=== PATIENT | female | born 1990 | race Caucasian/White ===

== ENCOUNTER 2017-01-31 03:44 | Inpatient (IN) | payer MEDICAID ==
[2017-01-31 04:05] VITALS: BMI 30.9
[2017-01-31] MEDS ORDERED: OXYTOCIN IN NS 167 ML IV PRN ×2 (06:42→15:45)
[2017-01-31] MEDS ORDERED: OXYTOCIN 10 UNITS/ML VIAL ONE (06:51)
[2017-01-31] MEDS ORDERED: LIDOCAINE Viscous 2% 15 ML UDCUP ONE (06:52)
[2017-01-31] MEDS ORDERED: LIDOCAINE 1% (PRES FREE) 30 ML VIAL ONE (06:52)
[2017-01-31] MEDS ORDERED: PUMP TUBING ONE (06:52)
[2017-01-31] MEDS ORDERED: MINERAL OIL 25 ML BOT ONE (06:52)
[2017-01-31] MEDS ORDERED: IV START KIT ONE (06:52)
[2017-01-31] MEDS ORDERED: FENTANYL/ROPIVACAINE EPIDURAL 250 ML EP ONE (06:53)
[2017-01-31] MEDS ORDERED: EPIDURAL PUMP SET ONE (06:53)
[2017-01-31] MEDS: LACTATED RINGERS 1,000 ML IV PRN ×3 (07:00→10:22)
[2017-01-31 07:13] LABS: HEMATOCRIT 36.4 % (37.0-47.0); HEMOGLOBIN 12.3 gm/l (12.0-16.0); MEAN CELL VOLUME 90.8 fl (81.0-99.0); MEAN CORPUSCULAR HEMOGLOBIN 30.7 pg (27.0-31.0); MEAN CORPUSCULAR HGB CONC 33.8 g/dl (33.0-37.0); RED CELL DISTRIBUTION WIDTH 12.8 % (11.5-14.5)
[2017-01-31] MEDS ORDERED: EPIDURAL PROCEDURE TRAY ONE (07:55)
[2017-01-31] MEDS ORDERED: ROPIVACAINE 0.5% 30 ML VIAL ONE (07:55)
--- NOTE | 2017-01-31 08:04 | PCMAN ---
OB Admission Note - History : 2 Term: 1 : 0 Abortions (S&E): 0 Livin EDC:: 02/13/17 Gestational Age (weeks): 38 Days (#/7): 1 Admit Cervical Dilation:: 7 Admit Cervical Effacement (%):: 80 Admit Station:: -2 Admit Presentaton:: vertex Membrane Status: Intact Labor Onset (Date): 01/31/17 Labor Onset (Time): 03:00 Contractions: Yes Contraction Frequency:: 2.5-4 Heart Rate:: 120 Status:: Cat I Summary of Course:: 26 yo here w UCs and labor PNC: started early PNC. Dated by 14 wk u/s c/w 25 wk u/s. Uncomplicated PNC. OBHx: at term PMH: noncontrib PSH: none SocHx: no tob/etoh/drug use IZ: TdaP 11/20/16 Flu 08/07/16 - Labs Blood Type: A (+) positive (ab neg) Rubella Status: Immune GBS Status: Negative Abnormal Labs: None Other Labs:: HIV NR HBsAg NR TPall neg GC neg Chlam neg - Review of Systems No MEDINA, change in vision, RUQ pain - Physical Exam General: Afebrile, Mild Distress Psych/Mental Status: Mood/Affect Appropriate Neurological: Grossly Intact, Alert, Normal Speech, Normal Reflexes HEENT: Atraumatic, Mucous membr. moist/pink Lungs: Clear to Auscultation Bilaterally Cardiovascular: Regular Rate and Rhythm Abdomen: Other (gravid) Extremities: Full ROM, Normal Cap Refill DTR: Bicep (L): 2+ (Brisk, Normal), Bicep (R): 2+ (Brisk, Normal) Skin: Normal Color, Warm, Dry - Problems (1) Active labor at term Status: Acute Code: [id number]/Plan: 26 yo at 38w1d in active labor Admit Epidural for pain mgmt per pt request Expt mgmt
[2017-01-31] MEDS ORDERED: EPHEDRINE SULFATE 50 MG/ML 1ML VIAL IV PRN (08:08)
[2017-01-31] MEDS ORDERED: SODIUM CHLORIDE 0.9% 500 ML IV PRN (08:08)
[2017-01-31] MEDS ORDERED: METOCLOPRAMIDE HCL 5 MG/ML 2ML VIAL IV PRN (08:08)
[2017-01-31] MEDS ORDERED: DIPHENHYDRAMINE HCL 50 MG/1 ML VIAL IV PRN (08:08)
[2017-01-31] MEDS ORDERED: ONDANSETRON 4 MG/2ML 2 ML VIAL IV PRN (08:08)
[2017-01-31] MEDS ORDERED: NALOXONE HCL 0.4 MG/ML VIAL IV PRN (08:08)
[2017-01-31] MEDS ORDERED: LACTATED RINGERS 500 ML IV PRN (08:08)
[2017-01-31] MEDS ORDERED: FENTANYL/ROPIVACAINE EPIDURAL 250 ML EP SCH (08:08)
[2017-01-31] MEDS ORDERED: NALBUPHINE HCL 20 MG/ML AMP IV PRN (08:08)
--- NOTE | 2017-01-31 11:20 | PDOC36 ---
Provider Note Subject: addendum Note: s: comfortable w epidural. o: avss fht 120s, cat I toco: q 5-12 sve: 7/80/-2 arom, clear fluid a/p: 26 yo here in labor, w slow progression arom consider pitocin augmentation if inadequate progress expt mgmt
[2017-01-31] MEDS ORDERED: OXYTOCIN IN NS 334 ML IV PRN (11:59)
--- NOTE | 2017-01-31 14:45 | PCMDEL ---
Delivery Note - Labor 1st stage (hr/min):: 8hr 48min 2nd stage (hr/min):: 0hr 32min 3rd stage (hr/min):: 0hr 16min Total (hr/min):: 9hr 36min Pushed (hr/min):: 0hr 20min - Delivery Delivery (Date): 01/31/17 Delivery (Time): 12:20 Gender: Male Presentation: Cephalic Position: OA Umbilical Cord: 3 Vessel Delayed Cord Clamping:: 2-3 min 1 Minute Total: 9 5 Minute Total: 10 Placenta:: complete and intact EBL:: 100 ml Perineum:: intact, but 1st deg L vag lac, good hemostasis, no repair Anesthesia/Meds:: epidural Length ROM:: 1 hr 45min Comments:: vigorous male infant over 1st degree L vag lac. passed to mom. Delayed cord clamping x 2-3 min. Active 3rd stage w IV pitocin. 3v cord. Placenta del complete and intact. FF w massage. Good hemostasis at lac, no repair done. Infant and mom bonding skin to skin .
[2017-01-31] MEDS ORDERED: DOCUSATE SODIUM 100 MG CAPSULE PO PRN (15:45)
[2017-01-31] MEDS ORDERED: BENZOCAINE/MENTHOL 60 APPLIC/BOT TP PRN (15:45)
[2017-01-31] MEDS ORDERED: HYDROCODONE/ACETAMINOPHEN 5/325MG TABLET PO PRN (15:45)
[2017-01-31] MEDS ORDERED: MAGNESIUM HYDROXIDE 30 ML UDCUP PO PRN (15:45)
[2017-01-31] MEDS ORDERED: LANOLIN 50 APPLIC/7G TUBE TP PRN (15:45)
[2017-01-31] MEDS ORDERED: CALCIUM CARBONATE 500 MG TAB.CHEW PO PRN (15:45)
[2017-01-31] MEDS ORDERED: SENNOSIDES 8.6 MG TABLET PO PRN (15:45)
[2017-01-31] MEDS ORDERED: LACTATED RINGERS 1,000 ML IV PRN (15:45)
[2017-01-31] MEDS ORDERED: HYDROXYZINE HCL 25 MG TABLET PO PRN (16:03)
[2017-01-31] MEDS: IBUPROFEN 800 MG TABLET PO PRN (16:53)
[2017-01-31] MEDS: LACTATED RINGERS 1,000 ML IV SCH ×3 (17:00→17:57)
[2017-02-01] MEDS: IBUPROFEN 800 MG TABLET PO PRN ×3 (00:09→14:46)
[2017-02-01 07:11] LABS: HEMATOCRIT 37.2 % (37.0-47.0); HEMOGLOBIN 12.4 gm/l (12.0-16.0)
[2017-02-01 08:48] VITALS: BP 113/61
--- NOTE | 2017-02-01 10:41 | PDOC44 ---
- Subjective Day: 1 Patient doing well. C/o swelling in her hands, but seems to have decreased since yesterday. Ambulating without dizziness. Tolerating PO. BF well. Lochia minimal. Desires early d/c home today. Reports Flatus, Reports Pain Tolerable, Reports , Reports Lochia Light, Reports Tolerating Regular Diet, Denies Nausea, Denies Vomiting - Objective Temp Pulse Resp BP Pulse Ox 98.0 F 73 16 113/61 02/01/17 08:45 02/01/17 08:45 02/01/17 08:45 02/01/17 08:45 Lab Results 02/01/17 06:10 Hgb 12.4 Hct 37.2 Current Medications Generic Name Dose Route Start Last Admin Trade Name Freq PRN Reason Stop Dose Admin Acetaminophen/Hydrocodone Bitart 1 - 2 tab 01/31/17 15:45 [place] 5/325 PO Q4H PRN Pain (Moderate) Benzocaine/Menthol 1 applic 01/31/17 15:45 Dermoplast TP PRN PRN Patient Comfort Calcium Carbonate/Glycine 500 - 1,000 mg 01/31/17 15:45 Tums PO BID PRN Indigestion Docusate Sodium 100 mg 01/31/17 15:45 02/01/17 08:46 Colace PO 100 mg DAILY PRN Administration Comfort Emollient Ointment 1 applic 01/31/17 15:45 [id number] TP PRN PRN sore nipples Hydroxyzine HCl 25 mg 01/31/17 16:03 Atarax PO QID PRN Itching Lactated Ringer's 1,000 mls @ 100 mls/hr 01/31/17 15:45 Lactated Ringers IV .Q10H PRN Titrate per clinical situation OXYTOCIN IN NS 167 mls @ 167 mls/hr 01/31/17 15:45 Oxytocin-Ns 30 Unit/500 Ml IV X1 PRN Bleeding/3rd stage labor Ibuprofen 800 mg 01/31/17 15:45 02/01/17 08:46 Motrin PO 800 mg Q6H PRN Administration Pain (Mild) Magnesium Hydroxide 30 ml 01/31/17 15:45 Milk Of Magnesia PO BEDTIME PRN Constipation Senna 17.2 mg 01/31/17 15:45 Senokot PO BEDTIME PRN Comfort Sodium Chloride 10 ml 01/31/17 15:45 Normal Saline 10ml Flush IV PRN PRN IV Flush Sodium Chloride 10 ml 01/31/17 17:00 02/01/17 06:57 Normal Saline 10ml Flush IV Not Given Q8HR MARTÍN - Physical Exam General: Afebrile, No Acute Distress Psych/Mental Status: Mood/Affect Appropriate, Bonding Well Neurological: Alert, Normal Gait, Normal Speech Lungs: Clear to Auscultation Bilaterally, Normal Air Movement Cardiovascular: Regular Rate and Rhythm, Normal S1, Normal S2 Fundus: Firm, Midline Extremities: Full ROM, No Edema, No Tenderness Skin: Normal Color, Warm, Dry, Intact, No Rash - Problems:Assessment/Plan (1) (normal spontaneous vaginal delivery) Status: AcuteAssessment/Plan: Patient doing well Desires early d/c home today BF Will follow up with Dr. Goldman in 6 weeks Disposition: Stable, Anticipate DC to Home
== END 2017-02-01 15:52 | disposition home or self-care (01) | DRG 775 ==
LOC: FBCOUT 03:44 → FBC 03:44 → FBCOUT 06:41
PROVIDERS: ADMIT Family Medicine; ATTEND Family Medicine
PROC: 0HQ9XZZ Repair Perineum Skin, External Approach (ICD-10-PCS; principal; 2017-01-31)
PROC: 10E0XZZ Delivery of Products of Conception, External Approach (ICD-10-PCS; 2017-01-31)
DX: O70.0 First degree perineal laceration during delivery (principal); Z3A.38 38 weeks gestation of pregnancy; Z37.0 Single live birth